=== PATIENT | male | born 1980 | race Caucasian/White ===

== ENCOUNTER 2017-08-31 10:28 | Emergency (ER) | payer BC, OTHER ==
[2017-08-31 10:38] VITALS: BP 143/97; PULSE 71; TEMP 98.4; BMI 28.8
--- NOTE | 2017-08-31 11:56 | PDOC ---
History of Present Illness - General Chief Complaint: Laceration Stated Complaint: LACERATION Time Seen by Provider: 08/31/17 11:25 History Source: Patient Exam Limitations: No Limitations - History of Present Illness Initial Comments: 08/31/17 11:59 Chief complaint: laceration left fourth finger History of present illness: He is a 37-year-old male [place] [employer] not on duty here today. Patient reports that last night he cut his left fourth finger on a knife while cutting onions. Patient reports that area would not stop bleeding. Patient reports now that the area stop bleeding and he is embarrassed to be here. Patient is up-to-date with his tetanus diphtheria pertussis vaccine. Patient has a history of hypertension hyperlipidemia and had cervical spine surgery with discectomy and fusion of C5 C6 C7 patient has had numbness of his fingers prior to surgery and since. Occurred: reports: yesterday Severity: reports: mild Pain Location: reports: upper extremity (left 4 th distal digit) Method of Injury: Yes: other (cut on knife ) Modifying Factors: improves with: None Loss of Consciousness: no loss of consciousness Associated Symptoms (Fall): denies symptoms Past History - Past Medical History Allergies/Adverse Reactions: Allergies Allergy/AdvReac Type Severity Reaction Status Date / Time No Known Allergies Allergy Verified 08/31/17 10:36 Home Medications: Ambulatory Orders No Home Medications 0 dose .ROUTE UTDICT 06/14/12 HTN: Yes Hypercholesterolemia: Yes - Surgical History Orthopedic Surgery: Yes (disectomy C 5, C6 , C7 ) - Immunization History Td Vaccination: Yes Immunization Up to Date: Yes (FLU ) - Suicide/Smoking/Psychosocial Hx Smoking Status: Yes Smoking History: Former smoker Have you smoked in the past 12 months: Yes Number of Cigarettes Smoked Daily: 20 Information on smoking cessation initiated: No 'Breaking Loose' booklet given: 02/13/14 Hx Alcohol Use: No Drug/Substance Use Hx: No Substance Use Type: None Review of Systems - Review of Systems Able to Perform ROS?: Yes Constitutional: No: Symptoms Reported HEENTM: No: Symptoms Reported Respiratory: No: Symptoms reported Cardiac (ROS): No: Symptoms Reported ABD/GI: No: Symptoms Reported : No: Symptoms Reported Musculoskeletal: No: Symptoms Reported Integumentary: Yes: Other (tiny flap laceration left 4th finger tip) Neurological: Yes: Numbness (digits b/l hands (not new) ) *Physical Exam - Vital Signs Last Vital Signs Temp Pulse Resp BP Pulse Ox 98.4 F 71 19 143/97 98 08/31/17 10:36 08/31/17 10:36 08/31/17 10:36 08/31/17 10:36 08/31/17 10:36 - Physical Exam General Appearance: Yes: Appropriately Dressed Comments:: 08/31/17 11:53 radial pulse 4 + left Extremity: positive: Normal Capillary Refill, Normal Range of Motion (left 4th finger at DIP, PIP jt ). negative: Delayed Capillary Refill Integumentary: positive: Other (superfical flap laceration distal left 4th finger palmar ) Neurologic: positive: Alert, Normal Response, Responsive, Numbness, Sensory Deficit (left finger (not new) ) Procedures - Consent Consent obtained: From Patient - Laceration/Wound Repair Left Distal Volar Finger 4th digit Wound Length: to 2.5 cm Wound Explored: clean Wound's Depth, Shape: superficial, flap Irrigated w/ Saline: Yes Betadine Prep: Yes Wound Repaired With: Dermabond Sterile Dressing Applied: No Splint Applied: No Medical Decision Making - Medical Decision Making 08/31/17 12:05 He is a 37-year-old male [employer] not on duty here today. Patient reports that last night he cut his left fourth finger on a knife while cutting onions. Patient reports that area would not stop bleeding. Patient reports now that the area stop bleeding and he is embarrassed to be here. Patient is up-to- date with his tetanus diphtheria pertussis vaccine. Patient has a history of hypertension hyperlipidemia and had cervical spine surgery with discectomy and fusion of C5 C6 C7 patient has had numbness of his fingers prior to surgery and since. left finger superficial laceration Plan: Dermabond applied to the tip of the left fourth finger *DC/Admit/Observation/Transfer Diagnosis at time of Disposition: Laceration of finger of left hand Qualifiers: Encounter type: initial encounter Finger: ring finger Damage to nail status: without damage Foreign body presence: without foreign body Qualified Code(s): S61.215A - Laceration without foreign body of left ring finger without damage to nail, initial encounter; S61.215A - Laceration without foreign body of left ring finger without damage to nail, initial encounter - Discharge Dispostion Disposition: HOME Condition at time of disposition: Stable - Patient Instructions Additional Instructions: You may wash her hands as usual do not scrub off glue allow it to fall off naturally after this happens then may cleanse finger twice daily with antibacterial soap dry and apply tiny amount of bacitracin ointment Return to emergency room if any redness around area or swelling or any new symptoms develop Patient voiced understanding of discharge instructions and all answered
== END 2017-08-31 12:08 | disposition home or self-care (01) ==
LOC: JERFT 10:28
PROC: 0HQGXZZ Repair Left Hand Skin, External Approach (ICD-10-PCS; principal; 2017-08-31)
DX: S61.215A Laceration without foreign body of left ring finger without damage to nail, initial encounter (principal); W26.0XXA Contact with knife, initial encounter; Y93.G1 Activity, food preparation and clean up; Y92.018 Other place in single-family (private) house as the place of occurrence of the external cause
CPT/HCPCS: 99281-25

== ENCOUNTER 2017-11-17 11:19 | Emergency (ER) | payer BC ==
[2017-11-17 11:24] VITALS: BP 157/77; PULSE 84; TEMP 98.3; BMI 28.8
--- NOTE | 2017-11-17 11:26 | PDOC ---
History of Present Illness - General Chief Complaint: Injury Stated Complaint: ypd FALL/ LT HAND INJURY Time Seen by Provider: 11/17/17 11:25 History Source: Patient Exam Limitations: No Limitations - History of Present Illness Initial Comments: CHIEF COMPLAINT: 37 y/o male c/o left middle finger swelling and pain since yesterday. HISTORY OF PRESENT ILLNESS: Patient states he was shoveling snow yesterday when he thinks he dislocated the middle finger of his left hand. He is here to make sure he didn't break it. He can still bend the finger and denies numbness/ tingling. REVIEW OF SYSTEMS: GENERAL/CONSTITUTIONAL: No fever/chills. No weakness. No weight change. MUSCULOSKELETAL: +left middle finger pain and swelling. No neck or back pain. SKIN: No rash or easy bruising. NEUROLOGIC: No headache, vertigo, loss of consciousness, or loss of sensation. PHYSICAL EXAM: VITAL_SIGNS: within normal limits GENERAL_APPEARANCE: alert, cooperative, no obvious discomfort. MENTAL_STATUS: speech clear, oriented X 3, responds appropriately to questions. NEURO: motor intact and sensory intact in injured extremity. EXTREMITIES: good pulse in injured extremity. Moderate edema an ecchymosis to PIP and DIP joint of 3rd left finger. TTP of PIP joint of 3rd left finger. Full flexion and extension of left middle finger SKIN: warm, dry, good color. Past History - Past Medical History Allergies/Adverse Reactions: Allergies Allergy/AdvReac Type Severity Reaction Status Date / Time No Known Allergies Allergy Verified 11/17/17 11:21 Home Medications: Ambulatory Orders No Home Medications 0 dose .ROUTE UTDICT 06/14/12 COPD: No HTN: Yes Hypercholesterolemia: Yes - Surgical History Orthopedic Surgery: Yes (disectomy C 5, C6 , C7 ) - Immunization History Td Vaccination: Yes Immunization Up to Date: Yes (FLU ) - Suicide/Smoking/Psychosocial Hx Smoking Status: Yes Smoking History: Former smoker Have you smoked in the past 12 months: Yes Number of Cigarettes Smoked Daily: 20 Information on smoking cessation initiated: No 'Breaking Loose' booklet given: 02/13/14 Hx Alcohol Use: No Drug/Substance Use Hx: No Substance Use Type: None *Physical Exam - Vital Signs Last Vital Signs Temp Pulse Resp BP Pulse Ox 98.3 F 84 18 157/77 100 11/17/17 11:21 11/17/17 11:21 11/17/17 11:21 11/17/17 11:21 11/17/17 11:21 Medical Decision Making - Medical Decision Making A/P: 37 y/o male with left middle finger pain and swelling. Plan is as follows : 1. xray Xray finger IMPRESSION: (WET READ) No fracture or dislocations noted The patient's affected finger was niharika taped to adjacent finger for comfort. Suggested he take MOtrin for pain if needed and ice to help improve swelling. Pt instructed to return to the ER with any worsening or concerning symptoms. The patient verbalizes understanding of all instructions, has no further questions and is awaiting discharge. *DC/Admit/Observation/Transfer Diagnosis at time of Disposition: Strain of finger of left hand - Discharge Dispostion Disposition: HOME Condition at time of disposition: Good - Referrals - Patient Instructions Printed Discharge Instructions: DI for Finger Sprain, How To Perform RICE (Rest , Ice, Compress, Elevate) Additional Instructions: Discharge Instructions: -The xray of your finger showed no bone breaks or dislocations. -Take MOtrin if needed for pain/swelling -Tape affected finger to adjacent finger to help with pain -Return to the ER with any worsening or concerning symptoms - Post Discharge Activity
== END 2017-11-17 11:54 | disposition home or self-care (01) ==
LOC: JERFT 11:19
DX: S56.414A Strain of extensor muscle, fascia and tendon of left middle finger at forearm level, initial encounter (principal); X58.XXXA Exposure to other specified factors, initial encounter; Y93.89 Activity, other specified; Y92.9 Unspecified place or not applicable
CPT/HCPCS: 73140-TC-LT; 99281-25